=== PATIENT | male | born 1940 ===

== ENCOUNTER 2022-01-17 18:04 | Inpatient (IN) | payer MEDICARE, BC ==
[~2022-01-17] VITALS: Ht 185.4 cm; Wt 128.1 kg
[2022-01-17] VITALS (154 sets, daily range): BP systolic 79–119; BP diastolic 51–68; PULSE 80–92; TEMP 96.8; O2SAT 86–100
[2022-01-17 20:58] LABS: BASO # 0.1 K/mm3 (0.0-0.2); BASO % 0.6 % (0.0-2.0); EOS % 0.2 % (0.0-4.0); GRAN # 6.9 K/mm3 (1.4-6.5); GRAN % 81.1 % (42.2-75.2); LYMPH # 0.6 K/mm3 (1.2-3.4); LYMPH % 6.9 % (20.0-51.0); MEAN CELL VOLUME 107 fl (80.0-100.0); MEAN CORPUSCULAR HGB CONC 31 g/dl (33.0-37.0); MONO # 0.9 K/mm3 (0.1-0.6); MONO % 10.1 % (1.7-9.3); PLATELET COUNT 187 K/mm3 (130-400); RED BLOOD COUNT 2.41 M/mm3 (4.20-5.60); REDCELL DISTRIBUTION WIDTH-CV 23.8 % (11.5-14.5)
[2022-01-17 20:59] LABS: HEMATOCRIT 25.8 % (42.0-52.0); HEMOGLOBIN 8.1 g/dl (13.5-18.0); MEAN CORPUSCULAR HEMOGLOBIN 34 pg (27-31)
[2022-01-17 21:00] LABS: INR 2.3 (0.8-3.0); PROTHROMBIN TIME 26.5 SECONDS (9.7-12.8)
[2022-01-17 21:17] LABS: CALCIUM 7.2 mg/dL (8.4-10.2); CREATININE, serum 5.1 mg/dL (0.72-1.25); MAGNESIUM 1.9 mg/dL (1.6-2.6); PHOSPHOROUS 5.7 mg/dL (2.3-4.7); POTASSIUM 3.3 mmol/L (3.5-4.5)
[2022-01-17 21:32] LABS: COLLECTION METHOD CATHETER
[2022-01-17 21:37] LABS: TSH w REFLEX 1.517 uIU/mL (0.350-4.940)
[2022-01-17 21:39] LABS: TROPONIN-I 4.052 ng/mL (0.00-0.033)
[2022-01-17 22:42] LABS: PH 7 (5-8); URINE APPEARANCE Turbid (CLEAR/HAZY); URINE COLOR Red (YELLOW); URINE PROTEIN(semi-quant) 1+ (NEGATIVE)
[2022-01-17 22:43] LABS: URINE BLOOD 3+ (NEGATIVE); URINE GLUCOSE Negative (NEGATIVE); URINE KETONE Negative (NEGATIVE); URINE NITRATE Negative (NEGATIVE); URINE UROBILINOGEN Negative (NEGATIVE)
[2022-01-17 22:51] LABS: ARTERIAL BLD GAS O2 SATURATION 87.9 % (92-100); ARTERIAL BLD GAS TCO2 CT 34.7; ARTERIAL BLOOD GAS BASE EXCESS 9.2 (-2-2); ARTERIAL BLOOD GAS HCO3 33.3 meq/L (22-26)
[2022-01-17] MEDS ORDERED: REMERON30 MG PO (23:56)
[2022-01-17] MEDS ORDERED: FLOMAX 0.40.4 MG/CAP PO (23:57)
[2022-01-17] MEDS ORDERED: PROTONIX 40MG T40 MG PO (23:58)
[2022-01-17] MEDS ORDERED: ASPIRIN 81M81 MG/TA2 PO (23:59)
[2022-01-18] VITALS (1406 sets, daily range): BP systolic 73–117; BP diastolic 47–72; PULSE 71–90; TEMP 96.4–98.5; O2SAT 67–100
[2022-01-18] MEDS ORDERED: LOPRESSOR 225 MG/TAB PO (00:01)
[2022-01-18] MEDS ORDERED: CELEXA 20MG20 MG/TAB PO (00:02)
[2022-01-18] MEDS ORDERED: ZYLOPRIM 100MG100 MG PO (00:03)
[2022-01-18] MEDS ORDERED: FERRO-TIME325 MG PO (00:04)
[2022-01-18] MEDS ORDERED: MAG-OX 400400 MG/TAB PO (00:06)
[2022-01-18] MEDS ORDERED: FOLIC ACID 11 MG/TA1 PO (00:07)
[2022-01-18 01:09] LABS: SQUAMOUS EPITHELIAL None Seen /hpf (0-10); URINE BACTERIA None Seen /hpf (NONE SEEN); URINE RBC >50 /hpf (0-2)
[2022-01-18 04:42] LABS: BASO % 0.5 % (0.0-2.0); EOS # 0.1 K/mm3 (0.0-0.7); EOS % 1.3 % (0.0-4.0); GRAN # 6.3 K/mm3 (1.4-6.5); GRAN % 81.2 % (42.2-75.2); LYMPH # 0.5 K/mm3 (1.2-3.4); LYMPH % 6.9 % (20.0-51.0); MEAN CELL VOLUME 108 fl (80.0-100.0); MEAN CORPUSCULAR HGB CONC 30 g/dl (33.0-37.0); MEAN PLATELET VOLUME 11.4 fl (7.4-10.4); MONO # 0.7 K/mm3 (0.1-0.6); MONO % 9.3 % (1.7-9.3); PLATELET COUNT 180 K/mm3 (130-400); REDCELL DISTRIBUTION WIDTH-CV 23.5 % (11.5-14.5)
[2022-01-18 04:44] LABS: HEMATOCRIT 25.8 % (42.0-52.0); HEMOGLOBIN 7.7 g/dl (13.5-18.0); MEAN CORPUSCULAR HEMOGLOBIN 32 pg (27-31)
[2022-01-18 04:55] LABS: ARTERIAL BLD GAS O2 SATURATION 94.4 % (92-100); ARTERIAL BLD GAS TCO2 CT 45.1; ARTERIAL BLOOD GAS BASE EXCESS 18.8 (-2-2); ARTERIAL BLOOD GAS HCO3 43.5 meq/L (22-26); ARTERIAL BLOOD GAS PCO2 52.6 mmHg (35-45); ARTERIAL BLOOD GAS PO2 78.4 mmHg (80-100); ARTERIAL BLOOD GAS pH 7.54 (7.35-7.45)
[2022-01-18 04:59] LABS: ALBUMIN 2.3 gm/dL (3.4-4.8); BILIRUBIN,TOTAL 1.8 mg/dL (0.2-1.2); CALCIUM 6.9 mg/dL (8.4-10.2); CREATININE, serum 4.96 mg/dL (0.72-1.25); MAGNESIUM 1.8 mg/dL (1.6-2.6); TOTAL PROTEIN 6.2 gm/dL (6.2-8.1)
--- NOTE | 2022-01-18 05:04 | NUR ---
Not done pt sedated
[2022-01-18 05:07] LABS: POTASSIUM 2.8 mmol/L (3.5-4.5); TROPONIN-I 6.934 ng/mL (0.00-0.033)
--- NOTE | 2022-01-18 05:55 | NUR ---
WHEN PATIENT IS AWAKE HE MOVES LEGS, MOANS, DOES NOT OPEN EYES, ORBIT SWELLING IS GOSSLY INTACK WILL NOT FOLLOW COMMANDS
--- NOTE | 2022-01-18 07:49 | NUR ---
0700 bedside shift report given. patient intubated and sedated. patient has on restraints, pittman in place and draining, og tube secured, and central line with sedated, and levo running through. patient appears to be resting comfortably. vs stable. will continue to monitor
[2022-01-18 10:14] LABS: ARTERIAL BLD GAS O2 SATURATION 94.9 % (92-100); ARTERIAL BLOOD GAS BASE EXCESS 16.5 (-2-2); ARTERIAL BLOOD GAS HCO3 42.2 meq/L (22-26); ARTERIAL BLOOD GAS PCO2 58.7 mmHg (35-45); ARTERIAL BLOOD GAS PO2 82.1 mmHg (80-100); ARTERIAL BLOOD GAS pH 7.48 (7.35-7.45)
--- NOTE | 2022-01-18 14:34 | NUR ---
Dump Operator attempted to meet with patient for intake assessment/discharge planning: Patient is intubated; nursing at bedside. Patient has spouse Ani , and friend/neighbor Denise at bedside. Spouse gives verbal consent to speak to this Dump Operator with friend present. Spouse informs patient has been seen at numerous hospitals, including [facility] in [place], several times in the last few months and the medical providers have been unable to tell them what is wrong with patient, "It's frustrating." She states patient refused a blood transfusion on 01/15/2022, and was discharged to home. Patient primary care physician Dr. Schmidt was notified, and followed up. Patient's status declined rapidly, and patient was transferred to [facility] from [facility] to ICU. Patient has a history of being "obstinate" and "ornery" per spouse and friend. He has been independent for 40 years, and has a history of service for 12, and civil service for 30. Spouse feels confident patient will likely refused to be placed for rehabilitation prior to return to home, but will likely support home health, which has already been established through [facility], and then transferred to [facility] per contract. Spouse has reached out to [facility] three times and has not heard back. She is now working to try to get [facility] services, as she feels confident they will be able to best meet his needs but they "Take time to process." She states he had been receiving exercise and strength-building services at home after discharge from [facility]. He is able to transfer independently, shower and dress independently. He struggles to ambulate with a walker and cane since he has been ill. She states she completes IADLs, such as meal preparation, shopping, household cleaning/tasking. She laughs. He stopped driving in September after he became "so weak." She informs patient gets his medications primarily through [facility] but they also use [facility] pharmacy in [place], as needed. She states "He's 81 years old, and set in his ways...adamant at being at home." Patient has a daughter Nikolai, but she is identified as DPOA-HC; spouse reports Dr. Schmidt has DPOA-HC paperwork on file, but she does not have a copy. When patient is alert/oriented she would like to do a new one as necessary to assure it is on file in his EMR. She states a best emergency contact for patient is her daughter, who is local and does not work, Lorena Anahi , if she cannot be reached. She expresses gratitude for discussion, and states no further needs at this time noting patient has "several levels" he must achieve before he will be able to discharge. Dump Operator continues to follow. *Discharge pending PT/OT evals and medical recommendation. SNF vs. HH. Patient may not support a placement for SNF*
--- NOTE | 2022-01-18 15:30 | NUR ---
Initial visit; Patient's requested prayer for Yoan. Diploma Medical Assistant joined her and her friend and prayed together that Physicians discern what is going on with Yoan' health issues and that he be healed of his illness. AniYoan funk' thanked Diploma Medical Assistant for comfort, support and prayer.
--- NOTE | 2022-01-18 19:08 | NUR ---
PT RESTING IN BED COMFORTABLY. HOB INCREASED TO 30 DEGREES. UPON ENTRANCE INTO ROOM VT 400. SWITCHED BACK TO 450 PER ORDERS. RAILS X4. RESTRAINTS SECURE. TUBING OUT OF REACH OF HANDS. GASTRIC TUBE TAPED TO ET TUBE IS LOOSE. NURSING NOTIFIED. ABLE TO WEAN O2 TO 90%. NO SIGNS OF DISTRESS. NO CONCERNS VOICED. NO OTHER CHANGES MADE. WILL CONTINUE TO MONITOR
--- NOTE | 2022-01-18 20:30 | NUR ---
RN IN ROOM AT THIS TIME. ROUNDING VIDEO CALL OCCURED WHILE IN ROOM. ABLE TO WEAN O2 TO 85%. NO AGGIATION NOTED FROM PT. PT IS COMFORTABLE. RAILS UP X4. NRB RAN THROUGH [employer] NO COMPLICATIONS. NO VOICED CONCERNS FROM NURSING OR PT. PT IS SEDATED AND COMFORTABLE AT THIS TIME
[2022-01-19] VITALS (988 sets, daily range): BP systolic 95–109; BP diastolic 52–65; PULSE 78–86; TEMP 97.6–98.6; O2SAT 71–98
--- NOTE | 2022-01-19 00:05 | NUR ---
PT RESTING IN BED. RN IN ROM. AMBUBAG ON FLOW METER AT HEAD OF BED. RAILS UP X4. RESTRAINTS SECURE
--- NOTE | 2022-01-19 03:21 | NUR ---
NO CHANGES ASIDE FROM DROPPING O2 TO 80%. PT TOLERATING WELL. OCCASIONALLY HE HAS THESE COUGHING FITS THAT RESULT IN SATS DROPPING TO 88%. DURING THIS WITNESSED EVENT SUCTIONED PT WITH USE OF SALINE BULLET. ALSO PERFORMED OROPHARYNGEAL SUCTIONING VIA CATHETER. PT TOLERATED WELL AND RECOVERED.
[2022-01-19 04:54] LABS: ARTERIAL BLD GAS O2 SATURATION 88.3 % (92-100); ARTERIAL BLOOD GAS BASE EXCESS 13.2 (-2-2); ARTERIAL BLOOD GAS HCO3 39.6 meq/L (22-26); ARTERIAL BLOOD GAS PCO2 54.5 mmHg (35-45); ARTERIAL BLOOD GAS PO2 60.3 mmHg (80-100); ARTERIAL BLOOD GAS pH 7.48 (7.35-7.45)
[2022-01-19 04:55] LABS: ARTERIAL BLD GAS TCO2 CT 1.3
[2022-01-19 05:06] LABS: BASO % 0.4 % (0.0-2.0); EOS # 0.3 K/mm3 (0.0-0.7); EOS % 2.6 % (0.0-4.0); GRAN # 7.9 K/mm3 (1.4-6.5); GRAN % 81.5 % (42.2-75.2); LYMPH # 0.6 K/mm3 (1.2-3.4); LYMPH % 5.9 % (20.0-51.0); MEAN CORPUSCULAR HGB CONC 32 g/dl (33.0-37.0); MEAN PLATELET VOLUME 11.5 fl (7.4-10.4); MONO # 0.8 K/mm3 (0.1-0.6); MONO % 8.6 % (1.7-9.3); PLATELET COUNT 190 K/mm3 (130-400); RED BLOOD COUNT 2.68 M/mm3 (4.20-5.60); REDCELL DISTRIBUTION WIDTH-CV 24.7 % (11.5-14.5)
[2022-01-19 05:10] LABS: HEMOGLOBIN 8.7 g/dl (13.5-18.0); MEAN CORPUSCULAR HEMOGLOBIN 32 pg (27-31)
[2022-01-19 05:11] LABS: HEMATOCRIT 27.5 % (42.0-52.0); MEAN CELL VOLUME 103 fl (80.0-100.0)
[2022-01-19 05:24] LABS: ALBUMIN 2.2 gm/dL (3.4-4.8); BILIRUBIN,TOTAL 1.6 mg/dL (0.2-1.2); CALCIUM 7.6 mg/dL (8.4-10.2); CHOLESTEROL RISK RATIO 6.6; CREATININE, serum 4.93 mg/dL (0.72-1.25); MAGNESIUM 1.9 mg/dL (1.6-2.6); TOTAL PROTEIN 6.4 gm/dL (6.2-8.1)
--- NOTE | 2022-01-19 05:24 | NUR ---
PATIENT WILL BEGIN TO COUGH WHEN STIMULATED EXTERNALLY AND BITE TUBE. WILL NOT FOLLOW COMMANDS. DOES NOT OPEN EYES
[2022-01-19 05:29] LABS: POTASSIUM 2.9 mmol/L (3.5-4.5)
--- NOTE | 2022-01-19 10:03 | NUR ---
REPORT RECEIVED FROM DAVINA TRUJILLO; PATIENT IS SEDATED AND ON A VENTILATOR WITH LEVO, FENT, PROP, AND LR RUNNING INTO HIS CENTRAL LINE IN THE RIGHT FEMORAL ARTERY. TUBE FEEDS ARE RUNNING THROUGH HIS OG TUBE AND PATIENT HAS HAD NO ISSUES WITH TUBE FEED. PATIENT APPEARS TO BE ADEQUATELY SEDATED AT THIS TIME.
--- NOTE | 2022-01-19 17:07 | NUR ---
THIS AFTERNOON WHILE CHANGING PROPOFOL DRIP, FENTANYL WAS ALSO PUT ON STANDBY AND WHILE BOTH DRIPS WERE STOPPED, PATIENT WAS REPEATEDLY ASKED TO FOLLOW VARIOUS COMMANDS AND PATIENT WAS UNABLE TO PERFORM THESE TASKS. PATIENT DID NOT OPEN HIS EYES BUT DID AT ONE POINT SQUEEZE HIS 'S HAND. SEDATION WAS RESUMED, PROPOFOL AT 15 MCG/KG/MIN AND FENTANYL AT 50 MCG/HR.
--- NOTE | 2022-01-19 19:16 | NUR ---
PATIENT LEFT THE UNIT VIA [employer] AT APPROX 1745 THIS EVENING ACCOMPANIED BY THE [employer] ALONG WITH A MED/REFRIGERATION REPAIR SUPERVISOR AND PERINATAL TECH TO HELP TRANSFER THE PATIENT ONTO THE HELICOPTER. PATIENT WAS SWITCHED OVER FROM OUR PUMPS AND VENTILATOR TO [employer] EQUIPMENT. PATIENT WAS STABLE UPON LEAVING THE UNIT. PATIENT'S PEDRITO WAS NOTIFIED THIS AFTERNOON BY DR. PALACIOS AND MYSELF AND WAS AGREEABLE TO PATIENT BEING TRANSFERRED FOR HIGHER LEVEL OF CARE.
== END 2022-01-19 17:45 | disposition short-term general hospital (02) | DRG 871 ==
LOC: ICU 18:04
PROVIDERS: Internal Medicine; Internal Medicine Pulmonary Disease; Student in an Organized Health Care Education/Training Program; ADMIT Student in an Organized Health Care Education/Training Program
PROC: 0BH17EZ Insertion of Endotracheal Airway into Trachea, Via Natural or Artificial Opening (ICD-10-PCS; 2022-01-17)
PROC: 5A1945Z Respiratory Ventilation, 24-96 Consecutive Hours (ICD-10-PCS; 2022-01-17)
PROC: 02HV33Z Insertion of Infusion Device into Superior Vena Cava, Percutaneous Approach (ICD-10-PCS; principal; 2022-01-19)
DX: A41.9 Sepsis, unspecified organism (principal); I21.4 Non-ST elevation (NSTEMI) myocardial infarction; J96.01 Acute respiratory failure with hypoxia; R65.21 Severe sepsis with septic shock; G93.41 Metabolic encephalopathy; I26.09 Other pulmonary embolism with acute cor pulmonale; N17.9 Acute kidney failure, unspecified; N39.0 Urinary tract infection, site not specified; J91.8 Pleural effusion in other conditions classified elsewhere; E87.2 Acidosis; E87.3 Alkalosis; I13.0 Hypertensive heart and chronic kidney disease with heart failure and stage 1 through stage 4 chronic kidney disease, or unspecified chronic kidney disease; I25.10 Atherosclerotic heart disease of native coronary artery without angina pectoris; E78.5 Hyperlipidemia, unspecified; J44.9 Chronic obstructive pulmonary disease, unspecified; D64.9 Anemia, unspecified; F32.A Depression, unspecified; N18.30 Chronic kidney disease, stage 3 unspecified; G47.33 Obstructive sleep apnea (adult) (pediatric); M10.9 Gout, unspecified; F17.210 Nicotine dependence, cigarettes, uncomplicated; I95.9 Hypotension, unspecified; E16.2 Hypoglycemia, unspecified; H11.423 Conjunctival edema, bilateral; D50.9 Iron deficiency anemia, unspecified; G40.909 Epilepsy, unspecified, not intractable, without status epilepticus; K70.9 Alcoholic liver disease, unspecified; E87.6 Hypokalemia; I73.00 Raynaud's syndrome without gangrene; B95.2 Enterococcus as the cause of diseases classified elsewhere; I50.810 Right heart failure, unspecified; E87.70 Fluid overload, unspecified; Z23 Encounter for immunization; Z79.82 Long term (current) use of aspirin
CPT/HCPCS: C1751; C9113; J0610; J2543; J2704; J3010; J3480; J7060; J7120; P9016